=== PATIENT | female | born 1940 | race Caucasian/White ===

== ENCOUNTER → 2016-09-10 | Outpatient (CLI) | payer MEDICARE, BC ==
--- NOTE | 2016-09-16 08:32 | MM ---
Reason for exam: screening (asymptomatic). Last mammogram was performed 1 year ago. History: Patient is postmenopausal, history of other cancer, and is nulliparous. Family history of premenopausal breast cancer in maternal aunt. Benign MG stereo VAD BX LT of the left breast, September 17, 2014. Benign US right guided VAD of the right breast, February 25, 2010. Benign cyst aspiration of the left breast. Benign cyst aspiration of the right breast. Benign excisional biopsy of the left breast. Took estrogen beginning at age 47. Took progesterone for 17 years beginning at age 47. Physical Findings: A clinical breast exam by your physician is recommended on an annual basis and results should be correlated with mammographic findings. MG 3D Screening Mammo W/Cad Bilateral CC and MLO view(s) were taken. Prior study comparison: September 10, 2015, bilateral MG 3d screening mammo w/cad. The breast tissue is heterogeneously dense. This may lower the sensitivity of mammography. Previous mammotome biopsy in the right breast with adjacent round density and in the left breast. There is chronic nodularity bilaterally. No significant changes when compared with prior studies. ASSESSMENT: Benign, BI-RAD 2 RECOMMENDATION: Routine screening mammogram of both breasts in 1 year.
== END | disposition home or self-care (01) ==
LOC: RADMAMWWP 08:45
PROVIDERS: ATTEND Family Medicine
DX: Z12.31 Encounter for screening mammogram for malignant neoplasm of breast (principal)
CPT/HCPCS: 77063; G0202

== ENCOUNTER → 2017-10-05 | Outpatient (CLI) | payer MEDICARE, BC ==
--- NOTE | 2017-10-07 10:42 | MM ---
Reason for exam: screening (asymptomatic). Last mammogram was performed 1 year and 1 month ago. History: Patient is postmenopausal, history of other cancer, and is nulliparous. Family history of premenopausal breast cancer in maternal aunt. Benign MG stereo VAD BX LT of the left breast, September 17, 2014. Benign US right guided VAD of the right breast, February 25, 2010. Benign cyst aspiration of the left breast. Benign cyst aspiration of the right breast. Benign excisional biopsy of the left breast. Took estrogen beginning at age 47. Took progesterone for 17 years beginning at age 47. Physical Findings: A clinical breast exam by your physician is recommended on an annual basis and results should be correlated with mammographic findings. MG 3D Screening Mammo W/Cad Bilateral CC and MLO view(s) were taken. Prior study comparison: September 10, 2016, bilateral MG 3d screening mammo w/cad. September 10, 2015, bilateral MG 3d screening mammo w/cad. The breast tissue is heterogeneously dense. This may lower the sensitivity of mammography. Previous mammotome biopsy in the right breast x 2. No significant changes when compared with prior studies. ASSESSMENT: Benign, BI-RAD 2 RECOMMENDATION: Routine screening mammogram of both breasts in 1 year.
== END | disposition home or self-care (01) ==
LOC: RADMAMWWP 09:04
PROVIDERS: ATTEND Family Medicine
DX: Z12.31 Encounter for screening mammogram for malignant neoplasm of breast (principal)
CPT/HCPCS: 77063; 77067

== ENCOUNTER → 2018-10-12 | Outpatient (CLI) | payer MEDICARE, BC ==
--- NOTE | 2018-10-13 13:52 | MM ---
Reason for exam: screening (asymptomatic). Last mammogram was performed 1 year ago. History: Patient is postmenopausal, history of other cancer, and is nulliparous. Family history of premenopausal breast cancer in maternal aunt. Benign MG stereo VAD BX LT of the left breast, September 17, 2014. Benign US right guided VAD of the right breast, February 25, 2010. Benign cyst aspiration of the left breast. Benign cyst aspiration of the right breast. Benign excisional biopsy of the left breast. Took estrogen beginning at age 47. Took progesterone for 17 years beginning at age 47. Physical Findings: A clinical breast exam by your physician is recommended on an annual basis and results should be correlated with mammographic findings. MG 3D Screening Mammo W/Cad Bilateral CC and MLO view(s) were taken. Prior study comparison: October 05, 2017, bilateral MG 3d screening mammo w/cad. September 10, 2016, bilateral MG 3d screening mammo w/cad. The breast tissue is heterogeneously dense. This may lower the sensitivity of mammography. Post surgical change on the left. No suspicious abnormality. Bilateral biopsy markers. No significant changes when compared with prior studies. ASSESSMENT: Benign, BI-RAD 2 RECOMMENDATION: Routine screening mammogram of both breasts in 1 year.
== END | disposition home or self-care (01) ==
LOC: RADMAMWWP 09:05
PROVIDERS: ATTEND Family Medicine
DX: Z12.31 Encounter for screening mammogram for malignant neoplasm of breast (principal)
CPT/HCPCS: 77063; 77067

== ENCOUNTER 2019-01-26 18:28 | Emergency (ER) | payer MEDICARE, BC ==
[2019-01-26 18:46] VITALS: TEMP 97.8
[2019-01-26] MEDS ORDERED: ONDANSETRON 4 MG/2 ML VIAL IVP STA (19:05)
[2019-01-26] MEDS ORDERED: SODIUM CHLORIDE 0.9% 1,000 ML IV STA (19:05)
[2019-01-26] MEDS ORDERED: PANTOPRAZOLE 40 MG/10 ML VIAL IVP STA (19:05)
--- NOTE | 2019-01-26 19:12 | ED ---
Abdominal Pain HPI - General Chief Complaint: Abdominal Pain Stated Complaint: Back/Abd Pain Time Seen by Provider: 01/26/19 18:50 Source: patient Mode of arrival: ambulatory Limitations: no limitations - History of Present Illness Initial Comments: Patient is 78-year-old female presenting to emergency Department with a chief complaint of abdominal pain. Patient reports the symptoms began about 4 hours ago with sudden onset of left flank pain that radiates to the back. Patient reports the pain is alleviated when walking exacerbated when sitting down. Patient reports nausea but no vomiting or diarrhea. Patient reports pain is throbbing in nature. Patient reports the pain is not related to oral intake. Patient denies increased urgency, frequency or dysuria. Patient does report a blood tinged urine but denies hematochezia or melena. Patient denies any night sweats fevers or chills. Patient denies any chest pain, shortness of breath, he adache. - Related Data Home Medications Medication Instructions Recorded Confirmed Levothyroxine Sodium [Synthroid] 100 mcg PO DAILY 09/04/14 09/18/14 Multivitamins, Thera [Multivitamin 1 each PO DAILY 09/04/14 09/18/14 (formulary)] Previous Rx's Medication Instructions Recorded Rivaroxaban [Xarelto] 10 mg PO DAILY #12 tab 09/18/14 Hydrocodone/Acetaminophen [Linwood 1 - 2 each PO Q6HR PRN #60 tab 09/21/14 5-325] Levofloxacin [Levaquin] 500 mg PO DAILY #3 tab 09/21/14 Sennosides-Docusate Sodium 2 each PO ONCE #30 tablet 09/21/14 [Senokot-S] hydrOXYzine PAMOATE [Vistaril] 25 mg PO Q6HR #40 capsule 09/21/14 Ondansetron Odt [Zofran Odt] 4 mg PO Q8HR PRN #20 tab 01/26/19 Allergies Allergy/AdvReac Type Severity Reaction Status Date / Time codeine Allergy Unknown Abdominal Verified 01/26/19 18:46 Pain sulfamethoxazole Allergy Unknown Unknown Verified 01/26/19 18:46 [From Bactrim] trimethoprim [From Bactrim] Allergy Unknown Unknown Verified 01/26/19 18:46 hydrocodone bitartrate AdvReac Severe Severe Verified 01/26/19 18:46 [From Linwood] Constipation Review of Systems ROS Statement: Those systems with pertinent positive or pertinent negative responses have been documented in the HPI. ROS Other: All systems not noted in ROS Statement are negative. Past Medical History Past Medical History: Osteoarthritis (OA), Thyroid Disorder History of Any Multi-Drug Resistant Organisms: None Reported Past Surgical History: Joint Replacement Additional Past Surgical History / Comment(s): LEFT KNEE REPLACEMENT (DEC 2012), THYROIDECTOMY. Past Anesthesia/Blood Transfusion Reactions: No Reported Reaction, Family History of Problems w/ Anesthesia Additional Past Anesthesia/Blood Transfusion Reaction / Comment(s): SISTER PONV Past Psychological History: No Psychological Hx Reported Smoking Status: Never smoker Past Alcohol Use History: Rare Past Drug Use History: None Reported - Past Family History Sister(s) Family Medical History: Cancer Additional Family Medical History / Comment(s): UTERINE CA AND LYMPHOMA General Exam Limitations: no limitations General appearance: alert, in no apparent distress, obese Head exam: Present: atraumatic, normocephalic, normal inspection Eye exam: Present: normal appearance, PERRL, EOMI Pupils: Present: normal accommodation ENT exam: Present: normal exam, normal oropharynx, mucous membranes moist Neck exam: Present: normal inspection, full ROM Respiratory exam: Present: normal lung sounds bilaterally Cardiovascular Exam: Present: regular rate, normal rhythm, normal heart sounds GI/Abdominal exam: Present: soft, tenderness (Left flank pain), normal bowel sounds. Absent: distended, guarding, rebound, rigid, diminished bowel sounds, hyperactive bowel sounds, organomegaly, mass, pulsatile mass, hernia Extremities exam: Present: normal inspection, full ROM, normal capillary refill Back exam: Present: normal inspection, full ROM, CVA tenderness (L). Absent: tenderness, CVA tenderness (R), paraspinal tenderness, vertebral tenderness Neurological exam: Present: alert, oriented X3 Psychiatric exam: Present: normal affect, normal mood Skin exam: Present: warm, intact, normal color Course Vital Signs 01/26/19 18:43 Temperature 97.8 F Pulse Rate 71 Respiratory 20 Rate Blood Pressure 195/90 O2 Sat by Pulse 98 Oximetry Medical Decision Making - Medical Decision Making Patient is 78-year-old female presenting to emergency Department with a chief complaint of abdominal pain. Physical examination is negative of left CVA tenderness with left flank tenderness. No palpable abdominal pulsating masses. Rest of physical examination is unremarkable. CBC is unremarkable. CMP showing changes in renal function. UA is indicative of hematuria which is suspected a more of a kidney stone. Patient was given fluids, antiemetics, Protonix and Bentyl. On reevaluation patient reports her symptoms have completely resolved and her pain is about a 1. I offered the patient a patient anti-emetic medication but she declined. CT was obtained and is showing multiple renal parapelvic cyst with left renal cortical cyst but no obstruction. Hiatal hernias also noted. There is very small amounts of mesenteric edema of unknown significance. There are also a few enlarged small bowel mesenteric lymph nodes and also a 2 cm para-aortic lymph node. I suspect the cortical renal cyst to be causing her symptoms. I advised the patient to follow-up with urology. Strict return parameters were thoroughly discussed with patient and her standing agreeable. Case discussed physician. - Lab Data Result diagrams: 01/26/19 19:00 01/26/19 19:00 Lab Results 01/26/19 01/26/19 01/26/19 Range/Units 19:00 19:00 19:24 WBC 9.6 (3.8-10.6) k/uL RBC 4.68 (3.80-5.40) m/uL Hgb 14.7 (11.4-16.0) gm/dL Hct 44.3 (34.0-46.0) % MCV 94.6 (80.0-100.0) fL MCH 31.3 (25.0-35.0) pg MCHC 33.1 (31.0-37.0) g/dL RDW 13.6 (11.5-15.5) % Plt Count 255 (150-450) k/uL Neutrophils % 79 % Lymphocytes % 14 % Monocytes % 3 % Eosinophils % 3 % Basophils % 1 % Neutrophils # 7.5 (1.3-7.7) k/uL Lymphocytes # 1.3 (1.0-4.8) k/uL Monocytes # 0.3 (0-1.0) k/uL Eosinophils # 0.3 (0-0.7) k/uL Basophils # 0.1 (0-0.2) k/uL Sodium 142 (137-145) mmol/L Potassium 4.5 (3.5-5.1) mmol/L Chloride 110 H (98-107) mmol/L Carbon Dioxide 24 (22-30) mmol/L Anion Gap 8 mmol/L BUN 18 H (7-17) mg/dL Creatinine 0.88 (0.52-1.04) mg/dL Est GFR (CKD-EPI)AfAm 74 (>60 ml/min/1.73 sqM) Est GFR (CKD-EPI)NonAf 64 (>60 ml/min/1.73 sqM) Glucose 88 (74-99) mg/dL Calcium 9.8 (8.4-10.2) mg/dL Total Bilirubin 0.3 (0.2-1.3) mg/dL AST 27 (14-36) U/L ALT 24 (9-52) U/L Alkaline Phosphatase 118 (38-126) U/L Total Protein 7.0 (6.3-8.2) g/dL Albumin 4.3 (3.5-5.0) g/dL Amylase 54 (30-110) U/L Lipase 97 (23-300) U/L Urine Color Yellow Urine Appearance Clear (Clear) Urine pH 7.0 (5.0-8.0) Ur Specific [place]idan 1.018 (1.001-1.035) Urine Protein Trace H (Negative) Urine Glucose (UA) Negative (Negative) Urine Ketones Negative (Negative) Urine Blood Moderate H (Negative) Urine Nitrite Negative (Negative) Urine Bilirubin Negative (Negative) Urine Urobilinogen <2.0 (<2.0) mg/dL Ur Leukocyte Esterase Small H (Negative) Urine RBC >182 H (0-5) /hpf Urine WBC 2 (0-5) /hpf Ur Squamous Epith Cells <1 (0-4) /hpf Urine Mucus Occasional H (None) /hpf Disposition Clinical Impression: Renal cyst, Acute left flank pain Disposition: HOME SELF-CARE Condition: Stable Instructions (If sedation given, give patient instructions): Abdominal Pain (ED) Additional Instructions: Please follow up with a urologist. Please return to emergency department if symptoms worsen. Prescriptions: Ondansetron Odt [Zofran Odt] 4 mg PO Q8HR PRN #20 tab PRN Reason: Nausea Is patient prescribed a controlled substance at d/c from ED?: No Referrals: Frankie Diallo III, MD [Primary Care Provider] - 1-2 days Rajat Araujo MD [STAFF PHYSICIAN] - 1-2 days Time of Disposition: 21:06
[2019-01-26] MEDS: DICYCLOMINE 10 MG/ML 2 ML AMP IM STA ×2 (19:15→19:20)
[2019-01-26 19:28] LABS: Basophils # (A) 0.1 k/uL (0-0.2); Basophils % (A) 1 %; Eosinophils # (A) 0.3 k/uL (0-0.7); Eosinophils % (A) 3 %; HCT 44.3 % (34.0-46.0); HGB 14.7 gm/dL (11.4-16.0); Lymphocytes # (A) 1.3 k/uL (1.0-4.8); Lymphocytes % (A) 14 %; MCH 31.3 pg (25.0-35.0); MCHC 33.1 g/dL (31.0-37.0); MCV 94.6 fL (80.0-100.0); Mean Platelet Volume 6.7; Monocytes # (A) 0.3 k/uL (0-1.0); Monocytes % (A) 3 %; Neutrophils # (A) 7.5 k/uL (1.3-7.7); Neutrophils % (A) 79 %; Platelet Count 255 k/uL (150-450); RBC 4.68 m/uL (3.80-5.40); RDW 13.6 % (11.5-15.5); WBC 9.6 k/uL (3.8-10.6)
[2019-01-26 19:30] LABS: Albumin 4.3 g/dL (3.5-5.0); Calcium 9.8 mg/dL (8.4-10.2); Potassium 4.5 mmol/L (3.5-5.1); Total Bilirubin 0.3 mg/dL (0.2-1.3)
[2019-01-26 19:31] LABS: Appearance,Urine Clear (Clear); Bilirubin,Urine Negative (Negative); Blood,Urine Moderate (Negative); Color,Urine Yellow; Glucose,Urine (UA) Negative (Negative); Ketones,Urine Negative (Negative); Leukocyte Esterase,Urine Small (Negative); Mucus,Urine Occasional /hpf; Nitrite,Urine Negative (Negative); Protein,Urine Trace (Negative); RBC,Urine >182 /hpf (0-5); Specific Gravity,Urine 1.018 (1.001-1.035); Squamous Epithelial Cell,Urine <1 /hpf (0-4); Urobilinogen,Urine <2.0 mg/dL (<2.0)
[2019-01-26] MEDS ORDERED: ONDANSETRON ODT 4 MG TAB PO STA (19:42)
--- NOTE | 2019-01-26 20:45 | CT ---
EXAMINATION TYPE: CT abdomen pelvis w con DATE OF EXAM: 01/26/2019 COMPARISON: None HISTORY: Abdominal/back pain. CT DLP: 1780.4 mGycm Automated exposure control for dose reduction was used. TECHNIQUE: Helical acquisition of images was performed from the lung bases through the pelvis. CONTRAST: Performed without Oral Contrast and with IV Contrast, patient injected with 100 mL of Isovue 300. FINDINGS: Lung bases are clear of consolidation. There is no pleural effusion. There is moderate hiatal hernia. Heart size is normal. There is no pericardial effusion. Stomach has normal size. There are clips from cholecystectomy. Liver appears normal. Spleen is intact . There is no pancreatic mass. There is no adrenal mass. There are numerous bilateral renal parapelvic cysts. Ureters are not dilated. There is no hydronephro sis. There is 4.5 cm cortical cyst lateral left kidney. There is a 2 cm right side enlarged para-aort ic lymph node. Bladder distends smoothly. There is no inguinal hernia. Uterus is anteverted. There is no free fluid in the pelvis. There is no evidence of a bowel obstruction. There is very minimal small bowel mesenteric edema. Ther e are multiple variable-sized enlarged small bowel mesenteric lymph nodes. Small bowel is not dilated . There is no evidence of free air. There is no ascites. There are some spondylotic changes in the lisy mbar spine. No pelvic lymphadenopathy seen. IMPRESSION: MULTIPLE RENAL PARAPELVIC CYSTS. LEFT RENAL CORTICAL CYSTS. NO RENAL OBSTRUCTION. HIATAL HERNIA. THERE IS MINIMAL SMALL BOWEL MESENTERIC EDEMA OF UNCERTAIN SIGNIFICANCE. THERE ARE A FEW ENLARGED SMA LL BOWEL MESENTERIC LYMPH NODES. THERE IS A SINGLE ENLARGED 2 CENTIMETER PERIAORTIC LYMPH NODE. No in testinal wall thickening. Inflammatory or neoplastic etiology is possible.
[2019-01-26 21:13] VITALS: BP 142/92; PULSE 88; RESP 16
== END 2019-01-26 21:13 | disposition home or self-care (01) ==
LOC: EC 18:28
DX: N28.1 Cyst of kidney, acquired (principal); R59.0 Localized enlarged lymph nodes; R11.0 Nausea; E07.9 Disorder of thyroid, unspecified; M19.90 Unspecified osteoarthritis, unspecified site; Z96.652 Presence of left artificial knee joint; Z79.890 Hormone replacement therapy; Z88.5 Allergy status to narcotic agent; Z88.2 Allergy status to sulfonamides; Z53.29 Procedure and treatment not carried out because of patient's decision for other reasons
CPT/HCPCS: 36415; 80053; 82150; 83690; 85025; 81001; 74177; 99284; 96374; 96375; 96361; J2405; C9113; Q9967

== ENCOUNTER → 2019-03-14 | Outpatient (CLI) | payer MEDICARE, BC ==
--- NOTE | 2019-03-14 08:47 | XR ---
EXAMINATION TYPE: XR KUB DATE OF EXAM: 03/14/2019 8:41 AM CLINICAL HISTORY: Left ureteral calculus TECHNIQUE: Two Upright KUB images of the abdomen are obtained. COMPARISON: CT January 26, 2019. FINDINGS: The 3 mm proximal left ureteral calculus on CT is not as well-seen on plain films likely du e to small size of stone and patient's body habitus. Cholecystectomy clips are redemonstrated. Overall nonobstructive bowel gas pattern. Right-sided pelvi c phleboliths noted. Multilevel spurring in the spine. Lung bases remain clear. IMPRESSION: As above. Consider repeat CT.
--- NOTE | 2019-03-14 09:09 | US ---
EXAMINATION TYPE: US kidneys/renal and bladder DATE OF EXAM: 03/14/2019 COMPARISON: CT CLINICAL HISTORY: N20.1 CALCULUS OF URETER. Flank pain EXAM MEASUREMENTS: Right Kidney: 10.2 x 5.1 x 5.6 cm Left Kidney: 11.0 x 5.2 x 5.6 cm Right Kidney: Multicystic, probable parapelvic cysts, largest= 2.0 x 1.3 x 2.0 Left Kidney: Cyst lateral= 5.3 x 3.0 x 5.2 cm/ Mild dilated renal pelvis Bladder: Not fully distended Bilateral Jets seen: No There are central parapelvic cysts bilaterally redemonstrated seen better on CT versus ultrasound. Ex am slightly suboptimal due to body habitus. Poor distention of bladder. Suggestion of mild to moderat e pyelocaliectasis on the left side on background parapelvic cysts. IMPRESSION: Suspect new mild to moderate left-sided hydronephrosis versus prior CT. This raises tiana rn for persistent obstructing small left ureter calculus. Background prominent parapelvic cysts bilat erally noted.
== END | disposition home or self-care (01) ==
LOC: RADUSWWP 08:22
PROVIDERS: ATTEND Urology
DX: N94.89 Other specified conditions associated with female genital organs and menstrual cycle (principal); N20.1 Calculus of ureter; I87.8 Other specified disorders of veins; Z90.49 Acquired absence of other specified parts of digestive tract
CPT/HCPCS: 74018; 76770

== ENCOUNTER → 2019-10-27 | Outpatient (CLI) | payer MEDICARE, BC ==
--- NOTE | 2019-10-30 09:55 | MM ---
Reason for exam: screening (asymptomatic). Last mammogram was performed 1 year ago. History: Patient is postmenopausal, history of other cancer, and is nulliparous. Family history of premenopausal breast cancer in maternal aunt. Benign MG stereo VAD BX LT of the left breast, September 17, 2014. Benign US right guided VAD of the right breast, February 25, 2010. Benign cyst aspiration of the left breast. Benign cyst aspiration of the right breast. Benign excisional biopsy of the left breast. Took estrogen beginning at age 47. Took progesterone for 17 years beginning at age 47. Physical Findings: A clinical breast exam by your physician is recommended on an annual basis and results should be correlated with mammographic findings. MG 3D Screening Mammo W/Cad Bilateral CC and MLO view(s) were taken. Prior study comparison: October 12, 2018, bilateral MG 3d screening mammo w/cad. October 05, 2017, bilateral MG 3d screening mammo w/cad. The breast tissue is heterogeneously dense. This may lower the sensitivity of mammography. Previous mammotome biopsy in the left breast. There is chronic nodularity bilaterally. There is no dominant lesion. No significant changes when compared with prior studies. ASSESSMENT: Benign, BI-RAD 2 RECOMMENDATION: Routine screening mammogram of both breasts in 1 year.
== END | disposition home or self-care (01) ==
LOC: RADMAMWWP 08:04
PROVIDERS: ATTEND Family Medicine
DX: Z12.31 Encounter for screening mammogram for malignant neoplasm of breast (principal)
CPT/HCPCS: 77063; 77067

== ENCOUNTER → 2020-12-03 | Outpatient (CLI) | payer MEDICARE ==
--- NOTE | 2020-12-04 21:06 | BD ---
EXAMINATION TYPE: Axial Bone Density DATE OF EXAM: 12/03/2020 COMPARISON: 2008 CLINICAL HISTORY: Postmenopausal screening Height: 5 FT 5 1/2 IN Weight: 228 FRAX RISK QUESTIONS: Alcohol (3 or more units per day): NO Family History (Parent hip fracture): NO Glucocorticoids (More than 3mos): NO (Ex: prednisone, prednisolone, methylprednisolone, dexamethasone, and hydrocortisone). History of Fracture in Adulthood: NO Secondary Osteoporosis: 1. Type 1 Diabetes: NO 2. Hyperthyroidism: NO 3. Menopause before 45: NO 4. Malnutrition: NO 5. Chronic liver disease: NO Rheumatoid Arthritis: NO Current Tobacco Use: NO RISK FACTORS HISTORY OF: Surgery to Spine/Hip(right/left)/Wrist (right/left): NO Family History of Osteoporosis: NO Active: YES Diet low in dairy products/other sources of calcium: NO Postmenopausal woman: MID 40'S Take estrogen and/or progesterone medications: NO Lost more than 2 inches in height since high school: NO MEDICATIONS: Thyroid Medications: YES Which medication: LEVOTHYROXINE How Long: SINCE AGE 28 Additional Medications: LEVOTHYROXINE, Additional History: EXAM MEASUREMENTS: Bone mineral densitometry was performed using the [employer] System. Bone mineral density as measured about the Lumbar spine is: ----- L1-L4(G/cm2): 1.470 T Score Values are as follows: ----- L2: 2.3 ----- L3: 3.6 ----- L4: 2.0 ----- L1-L4: 2.4 Bone mineral density has: INCREASED 7.3 % since study of: 2008 Bone mineral density about the R hip (g/cm2): 0.857 Bone mineral density about the L hip (g/cm2): 0.862 T Score values are as follows: -----R Neck: -1.3 -----L Neck: -1.3 -----R Total: -0.8 -----L Total: -0.9 Bone mineral density has: DECREASED -7.3 % since study of: 2008 IMPRESSION: Osteopenia (T Score between -2.5 and -1). There is slightly increased risk of fracture and the patient may be considered for treatment. Re-Screen 2-5 years. NOTE: T-SCORE=SD OF THE YOUNG ADULT MEAN.
== END | disposition home or self-care (01) ==
LOC: RADMAMWWP 14:39
PROVIDERS: ATTEND Family Medicine
DX: M85.80 Other specified disorders of bone density and structure, unspecified site (principal); Z78.0 Asymptomatic menopausal state
CPT/HCPCS: 77080

== ENCOUNTER → 2020-12-06 | Outpatient (CLI) | payer MEDICARE ==
--- NOTE | 2020-12-09 09:43 | MM ---
Reason for exam: screening (asymptomatic). Last mammogram was performed 1 year and 1 month ago. History: Patient is postmenopausal, history of other cancer, and is nulliparous. Family history of premenopausal breast cancer in maternal aunt. Benign MG stereo VAD BX LT of the left breast, September 17, 2014. Benign US right guided VAD of the right breast, February 25, 2010. Benign cyst aspiration of the left breast. Benign cyst aspiration of the right breast. Benign excisional biopsy of the left breast. Took estrogen beginning at age 47. Took progesterone for 17 years beginning at age 47. Physical Findings: A clinical breast exam by your physician is recommended on an annual basis and results should be correlated with mammographic findings. MG 3D Screening Mammo W/Cad Bilateral CC and MLO view(s) were taken. Prior study comparison: October 27, 2019, bilateral MG 3d screening mammo w/cad. October 12, 2018, bilateral MG 3d screening mammo w/cad. October 05, 2017, bilateral MG 3d screening mammo w/cad. The breast tissue is heterogeneously dense. This may lower the sensitivity of mammography. Previous mammotome biopsy in the right breast x 2 and in the left breast x 1. There is chronic nodularity bilaterally. There is no discrete abnormality. ASSESSMENT: Benign, BI-RAD 2 RECOMMENDATION: Routine screening mammogram of both breasts in 1 year.
== END | disposition home or self-care (01) ==
LOC: RADMAMWWP 07:07
PROVIDERS: ATTEND Family Medicine
DX: Z12.31 Encounter for screening mammogram for malignant neoplasm of breast (principal); Z13.820 Encounter for screening for osteoporosis
CPT/HCPCS: 77063; 77067

== ENCOUNTER → 2021-12-08 | Outpatient (CLI) | payer MEDICARE ==
--- NOTE | 2021-12-09 12:39 | MM ---
Reason for Exam: Screening (asymptomatic). Last screening mammogram was performed 12 month(s) ago. Patient History: Menarche at age 13. Patient has no children. Postmenopausal. Other cancer. Estrogen, from age 47 until age 64. Progesterone for 17 years from age 47 until age 64. Benign Cyst Aspiration on the right side. Benign Cyst Aspiration on the left side. Benign Excisional Biopsy on the left side. 09/17/2014, Benign Core Biopsy on the left side. 02/25/2010, Benign Core Biopsy on the right side. Maternal aunt had breast cancer, age 40. Risk Values: Kimberly 5 year model risk: 3.1%. NCI Lifetime model risk: 5.1%. Prior Study Comparison: 10/12/2018 Bilateral Screening Mammogram, [facility]. 10/27/2019 Bilateral Screening Mammogram, [facility]. 12/06/2020 Bilateral Screening Mammogram, [facility]. Tissue Density: The breast tissue is heterogeneously dense. This may lower the sensitivity of mammography. Findings: Analyzed By CAD. Unchanged bilateral areas of asymmetric density. Chronic intramammary lymph node upper outer quadrant right breast. 2 microclips in the right breast from prior biopsies with associated nodularity and focal asymmetries. Single microclip left breast with associated chronic nodularity. The focal asymmetry upper left MLO view at a middle depth remains unchanged back to at least 2018. No significant change from prior exams. Overall Assessment: Benign, BI-RAD 2 Management: Screening Mammogram of both breasts in 1 year. 1. Note the patient's high Kimberly score. Patient should continue monthly self breast exams. 2. A clinical breast exam by your physician is recommended on an annual basis. 3. This exam should not preclude additional follow-up of suspicious palpable abnormalities. Electronically signed and approved by: Maria Antonia Vasquez M.D. Radiologist
== END | disposition home or self-care (01) ==
LOC: RADMAMWWP 13:01
PROVIDERS: ATTEND Family Medicine
DX: Z12.31 Encounter for screening mammogram for malignant neoplasm of breast (principal)
CPT/HCPCS: 77063; 77067

== ENCOUNTER 2022-11-02 07:47 | Inpatient (IN) | payer MEDICARE ==
--- NOTE | 2022-11-02 08:39 | ED ---
General Adult HPI - General Chief complaint: Shortness of Breath Stated complaint: SOB Time Seen by Provider: 11/02/22 07:56 Source: patient Mode of arrival: ambulatory Limitations: no limitations - History of Present Illness Initial comments: Patient is an 82-year-old female who presents emergency department over concern for 3 months worsening dyspnea and chest discomfort. Patient states her rug setter [place] Dr. Jackson instructed her to come to the emergency department for admission.Patient instructed to come to the emergency department on Wednesday by Dr. Jackson. Is currently Wednesday morning. States symptoms have been ongoing for 3 months. His no history of CAD or stents as far she knows. Describes her chest discomfort is a intermittent pressure sensation located over the left side of her chest which she currently does not have. She also has exertional dyspnea but she currently does not have. Has no complaints or symptoms at this time. Has somewhat worsening lower extremity edema. Denies PND. Denies orthopnea. Denies any abdominal pain, nausea, vomiting, diaphoresis. Has no other acute complaints at this time. Has a history of hypertension, thyroid disease. Presents for further evaluation at this time. - Related Data Home Medications Medication Instructions Recorded Confirmed Levothyroxine Sodium [Synthroid] 100 mcg PO DAILY 09/04/14 11/02/22 Multivitamins, Thera [Multivitamin 1 tab PO DAILY 09/04/14 11/02/22 (formulary)] Aspirin [Adult Low Dose Aspirin EC] 81 mg PO DAILY 10/27/22 11/02/22 Metoprolol Succinate (ER) [Toprol 12.5 mg PO DAILY 10/27/22 11/02/22 Xl] Ibuprofen [Motrin Ib] 200 mg PO Q8H PRN 11/02/22 11/02/22 Annie Nail Gel 1 applic TOPICAL DAILY 11/02/22 11/02/22 Nitroglycerin Sl Tabs [Nitrostat] 0.4 mg SUBLINGUAL Q5M PRN 11/02/22 11/02/22 diphenhydrAMINE HCL [Benadryl] 25 mg PO DAILY PRN 11/02/22 11/02/22 Allergies Allergy/AdvReac Type Severity Reaction Status Date / Time codeine Allergy Unknown Abdominal Verified 11/02/22 10:44 Pain sulfamethoxazole Allergy Unknown Unknown Verified 11/02/22 10:44 [From Bactrim] trimethoprim [From Bactrim] Allergy Unknown Unknown Verified 11/02/22 10:44 adhesive tape Allergy Rash/Hives Verified 11/02/22 10:44 hydrocodone bitartrate AdvReac Severe Severe Verified 11/02/22 10:44 [From [place]] Constipation Review of Systems ROS Statement: Those systems with pertinent positive or pertinent negative responses have been documented in the HPI. Review of Systems: CONST: Denies fever EYES: Denies blurry vision ENT: Denies nasal congestion C/V: Denies current Chest pain RESP: Denies current shortness of breath GI: Denies abdominal pain : Denies dysuria SKIN: Denies rash. MSK: Denies joint pain. NEURO: Denies headache ROS Other: All systems not noted in ROS Statement are negative. Past Medical History Past Medical History: Osteoarthritis (OA), Thyroid Disorder History of Any Multi-Drug Resistant Organisms: None Reported Past Surgical History: Cholecystectomy, Joint Replacement, Tonsillectomy Additional Past Surgical History / Comment(s): STACEY. KNEE REPL., THYROIDECTOMY, STACEY FOOT BUNION SURGERY Past Anesthesia/Blood Transfusion Reactions: Postoperative Nausea & Vomiting (PONV) Additional Past Anesthesia/Blood Transfusion Reaction / Comment(s): SISTER PONV Past Psychological History: No Psychological Hx Reported Smoking Status: Never smoker Past Alcohol Use History: Rare Past Drug Use History: None Reported - Past Family History Sister(s) Family Medical History: Cancer Additional Family Medical History / Comment(s): UTERINE CA AND LYMPHOMA General Exam - General Exam Comments Initial Comments: General: Appears in no acute distress. HEAD: Normal with no signs of head trauma. EYES: PERRLA, EOMI, conjunctiva normal, no discharge. ENT: Hearing grossly intact, normal oropharynx. RESPIRATORY: Clear breath sounds bilaterally. No wheezes, rales, or rhonchi. C/V: Regular rate and rhythm. S1 and S2 auscultated, mild bilateral lower extremity pitting edema, peripheral pulses 2+ and intact throughout ABD: Abd is soft, nontender, nondistended EXT: Normal range of motion, no obvious deformity SKIN: No rashes or lesions observed on exposed skin. NEURO: Alert and oriented 4. No focal deficits. Limitations: no limitations Course Vital Signs 11/02/22 11/02/22 11/02/22 07:51 08:32 10:11 Temperature 98.1 F Pulse Rate 69 61 60 Respiratory 18 18 20 Rate Blood Pressure 167/83 149/86 146/71 O2 Sat by Pulse 91 L 95 97 Oximetry 11/02/22 11:04 Temperature Pulse Rate 66 Respiratory 20 Rate Blood Pressure 162/92 O2 Sat by Pulse 94 L Oximetry Medical Decision Making - Medical Decision Making Was pt. sent in by a medical professional or institution (, [facility], [employer], urgent care, hospital, or fpc...) When possible be specific @ -Patient states she was sent in by her rug setter [place], Dr. Jackson for evaluation. Did you speak to anyone other than the patient for history (EMS, parent, family, police, friend...)? What history was obtained from this source @ -No Did you review nursing and triage notes (agree or disagree)? Why? @ -I reviewed and agree with nursing and triage notes Were old charts reviewed (outside hosp., previous admission, EMS record, old EKG, old radiological studies, urgent care reports/EKG's, fpc records)? Report findings @ -No old charts were reviewed Differential Diagnosis (chest pain, altered mental status, abdominal pain women, abdominal pain men, vaginal bleeding, weakness, fever, dyspnea, syncope, headache, dizziness, GI bleed, back pain, seizure, CVA, palpatations, mental health, musculoskeletal)? @ -Differential Chest Pain: Stable Angina, Unstable Angina, STEMI, NSTEMI Aortic Dissection, Pneumothorax, Musculoskeletal, Esophageal Spasm GERD, Cholecystitis, Pancreatitis, Zoster, this is not meant to be an all-inclusive list. EKG interpreted by me (3pts min.). @ -As above X-rays interpreted by me (1pt min.). @ -Chest x-ray reveals no obvious acute cardiopulmonary process or infiltrate. No evidence of pulmonary vascular congestion. CT interpreted by me (1pt min.). @ -None done U/S interpreted by me (1pt. min.). @ -None done What testing was considered but not performed or refused? (CT, X-rays, U/S, labs)? Why? @ -None What meds were considered but not given or refused? Why? @ -None Did you discuss the management of the patient with other professionals (professionals i.e. , [employer], [employer], lab, RT, psych nurse, healthcare social worker, production foreman, teacher, activities officer, shelter case manager)? Give summary @ -I discussed with Dr. Jackson, patient's rug setter [place] after workup was completed and he requested that we hold computed tomography scan for PE as he believes patient's symptoms are likely cardiac in nature, and I think this is reasonable as she is hemodynamically stable at this time with [address] weeks of sympt oms. CT was canceled at his request. Echo was ordered. Patient made NPO at his request. Patient already received aspirin. Plan is for cardiac cath later today, CT if cath unremarkable per Dr. Jackson. I spoke with the admitting physician Dr. Lynn who accepted the admission. Was smoking cessation discussed for >3mins.? @ -No Was critical care preformed (if so, how long)? @ -No Were there social determinants of health that impacted care today? How? (Homelessness, low income, unemployed, alcoholism, drug addiction, transportation, low edu. Level, literacy, decrease access to med. care, half-way, rehab)? @ -No Was there de-escalation of care discussed even if they declined (Discuss DNR or withdrawal of care, Hospice)? DNR status @ -No What co-morbidities impacted this encounter? (DM, HTN, Smoking, COPD, CAD, Cancer, CVA, ARF, Chemo, Hep., AIDS, mental health diagnosis, sleep apnea, morbid obesity)? @ -None Was patient admitted / discharged? Hospital course, mention meds given and route, prescriptions, significant lab abnormalities, going to OR and other pertinent info. @ -Based on the patient's presentation and physical exam, concern for possible acute cardiopulmonary etiology for her current symptoms. We will obtain cardiopulmonary labs as well as EKG and chest x-ray. Patient was in agreement with this plan. Patient has 324 mg of aspirin administered. Attempts will be made to reach out to Dr. Jackson for any specific workup.. EKG showed very minimal ST segment depression in V6 and possibly V5 with reciprocal changes. No prior EKG for comparison. Patient's labs remarkable for a troponin that is undetectable, BMP is within normal limits. Chest x-ray shows no evidence of acute cardio pulmonary process or pulmonary vascular congestion. At this time as I do not have a clear etiology for her current symptoms I did add on a d-dimer to her initial workup. We were able to obtain recent lab results from the cardiology office which revealed no obvious findings.Patient's d-dimer was elevated and CT chest was initially ordered to evaluate for PE. Patient's rug setter [place] Dr. Jackson called back. He asked that I hold the CT chest which I believe is reasonable as she is hemodynamically stable with [address] was canceled at his request and will be performed based on results of cardiac cath later today. He was otherwise in agreement with the aspirin. Requested that patient be made nothing by mouth. Patient will be admitted to [facility] Dr. Lynn who accepted the admission. I spoke with the patient regarding this and she was in agreement with the plan. She last had water this morning but has not eaten anything today. She will be started on maintenance fluids as she is nothing by mouth. Echo was also ordered. Undiagnosed new problem with uncertain prognosis? @ -No Drug Therapy requiring intensive monitoring for toxicity (Heparin, Nitro, Insulin, Cardizem)? @ -No Were any procedures done? @ -No Diagnosis/symptom? @ -Chest pain, dyspnea Acute, or Chronic, or Acute on Chronic? @ -Acute on chronic Uncomplicated (without systemic symptoms) or Complicated (systemic symptoms)? @ -Complicated Side effects of treatment? @ -none Exacerbation, Progression, or Severe Exacerbation] @ -no Poses a threat to life or bodily function? @ -Potentially - Lab Data Result diagrams: 11/02/22 08:24 11/02/22 08:24 Lab Results 11/02/22 11/02/22 11/02/22 Range/Units 08:24 08:24 08:24 WBC 5.5 (3.8-10.6) k/uL RBC 4.75 (3.80-5.40) m/uL Hgb 14.3 (11.4-16.0) gm/dL Hct 43.2 (34.0-46.0) % MCV 90.9 (80.0-100.0) fL MCH 30.0 (25.0-35.0) pg MCHC 33.0 (31.0-37.0) g/dL RDW 14.1 (11.5-15.5) % Plt Count 175 (150-450) k/uL MPV 8.4 Neutrophils % 62 % Lymphocytes % 25 % Monocytes % 6 % Eosinophils % 5 % Basophils % 1 % Neutrophils # 3.4 (1.3-7.7) k/uL Lymphocytes # 1.4 (1.0-4.8) k/uL Monocytes # 0.3 (0-1.0) k/uL Eosinophils # 0.3 (0-0.7) k/uL Basophils # 0.0 (0-0.2) k/uL PT 10.6 (9.0-12.0) sec INR 1.0 (<1.2) APTT 24.1 (22.0-30.0) sec D-Dimer (<0.60) mg/L FEU Sodium 137 (137-145) mmol/L Potassium 4.1 (3.5-5.1) mmol/L Chloride 112 H (98-107) mmol/L Carbon Dioxide 20 L (22-30) mmol/L Anion Gap 5 mmol/L BUN 17 (7-17) mg/dL Creatinine 0.72 (0.52-1.04) mg/dL Est GFR (CKD-EPI)AfAm >90 (>60 ml/min/1.73 sqM) Est GFR (CKD-EPI)NonAf 80 (>60 ml/min/1.73 sqM) Glucose 102 H (74-99) mg/dL Plasma Lactic Acid Robert (0.7-2.0) mmol/L Calcium 8.8 (8.4-10.2) mg/dL Magnesium 2.0 (1.6-2.3) mg/dL Total Bilirubin 0.7 (0.2-1.3) mg/dL AST 27 (14-36) U/L ALT 17 (4-34) U/L Alkaline Phosphatase 93 (38-126) U/L Troponin I (0.000-0.034) ng/mL NT-Pro-B Natriuret Pep 285 pg/mL Total Protein 5.9 L (6.3-8.2) g/dL Albumin 3.5 (3.5-5.0) g/dL 11/02/22 11/02/22 11/02/22 Range/Units 08:24 08:24 08:24 WBC (3.8-10.6) k/uL RBC (3.80-5.40) m/uL Hgb (11.4-16.0) gm/dL Hct (34.0-46.0) % MCV (80.0-100.0) fL MCH (25.0-35.0) pg MCHC (31.0-37.0) g/dL RDW (11.5-15.5) % Plt Count (150-450) k/uL MPV Neutrophils % % Lymphocytes % % Monocytes % % Eosinophils % % Basophils % % Neutrophils # (1.3-7.7) k/uL Lymphocytes # (1.0-4.8) k/uL Monocytes # (0-1.0) k/uL Eosinophils # (0-0.7) k/uL Basophils # (0-0.2) k/uL PT (9.0-12.0) sec INR (<1.2) APTT (22.0-30.0) sec D-Dimer 2.75 H (<0.60) mg/L FEU Sodium (137-145) mmol/L Potassium (3.5-5.1) mmol/L Chloride (98-107) mmol/L Carbon Dioxide (22-30) mmol/L Anion Gap mmol/L BUN (7-17) mg/dL Creatinine (0.52-1.04) mg/dL Est GFR (CKD-EPI)AfAm (>60 ml/min/1.73 sqM) Est GFR (CKD-EPI)NonAf (>60 ml/min/1.73 sqM) Glucose (74-99) mg/dL Plasma Lactic Acid Robert 1.0 (0.7-2.0) mmol/L Calcium (8.4-10.2) mg/dL Magnesium (1.6-2.3) mg/dL Total Bilirubin (0.2-1.3) mg/dL AST (14-36) U/L ALT (4-34) U/L Alkaline Phosphatase (38-126) U/L Troponin I <0.012 (0.000-0.034) ng/mL NT-Pro-B Natriuret Pep pg/mL Total Protein (6.3-8.2) g/dL Albumin (3.5-5.0) g/dL - EKG Data -: EKG Interpreted by Me EKG Comments: 12-lead Electrocardiogram Interpretation Note EKG was reviewed and interpreted by myself. 12-lead ECG performed at 0802 is interpreted by me as revealing normal sinus rhythm at a rate of 70 beats per minute. [place] is normal. IN interval is 162 ms, QRS duration is 88 ms, QTc is [address] segment depression in leads V6 and somewhat and V4/V5 with no obvious reciprocal changes... R wave progression across the precordium was satisfactory. . 12-lead Electrocardiogram Interpretation Note EKG was reviewed and interpreted by myself. 12-lead ECG performed at 0958 is interpreted by me as revealing normal sinus rhythm at a rate of 64 beats per minute. [place] is normal. IN interval is 164 ms, QRS duration is 86 ms, QTc is 450 ms.. There were no ST or T wave abnormalities to suggest myocardial ischemia or injury. R wave progression across the precordium was satisfactory. By my interpretation this EKG is non-diagnostic for acute ischemia. Disposition Clinical Impression: Chest pain, Exertional dyspnea Disposition: ADMITTED IP TO THIS HOSP Condition: Stable Time of Disposition: 10:28
[2022-11-02 08:44] LABS: Basophils % (A) 1 %; Eosinophils # (A) 0.3 k/uL (0-0.7); Eosinophils % (A) 5 %; HCT 43.2 % (34.0-46.0); HGB 14.3 gm/dL (11.4-16.0); Lymphocytes # (A) 1.4 k/uL (1.0-4.8); Lymphocytes % (A) 25 %; MCV 90.9 fL (80.0-100.0); Mean Platelet Volume 8.4; Monocytes # (A) 0.3 k/uL (0-1.0); Monocytes % (A) 6 %; Neutrophils # (A) 3.4 k/uL (1.3-7.7); Neutrophils % (A) 62 %; Platelet Count 175 k/uL (150-450); RBC 4.75 m/uL (3.80-5.40); RDW 14.1 % (11.5-15.5); WBC 5.5 k/uL (3.8-10.6)
[2022-11-02 08:53] LABS: Partial Thromboplastin Time 24.1 sec (22.0-30.0); Prothrombin Time 10.6 sec (9.0-12.0)
[2022-11-02 08:58] LABS: ALT 17 U/L (4-34); AST 27 U/L (14-36); African American GFR (CKD) >90 (>60 ml/min/1.73 sqM); Albumin 3.5 g/dL (3.5-5.0); Alkaline Phosphatase 93 U/L (38-126); Blood Urea Nitrogen 17 mg/dL (7-17); Calcium 8.8 mg/dL (8.4-10.2); Carbon Dioxide 20 mmol/L (22-30); Glucose 102 mg/dL (74-99); Non-African American GFR(CKD) 80 (>60 ml/min/1.73 sqM); Total Bilirubin 0.7 mg/dL (0.2-1.3); Total Protein 5.9 g/dL (6.3-8.2)
--- NOTE | 2022-11-02 09:04 | XR ---
EXAMINATION TYPE: XR chest 2V DATE OF EXAM: 11/02/2022 COMPARISON: 02/29/2012 INDICATION: Short of breath TECHNIQUE: Frontal and lateral views of the chest are obtained. FINDINGS: The heart size is normal. The pulmonary vasculature is normal. The lungs are clear. IMPRESSION: 1. No acute pulmonary process.
[2022-11-02 09:06] LABS: NT-Pro-B-Type Natriuretic Pept 285 pg/mL
[2022-11-02 09:22] LABS: Anion Gap 5 mmol/L; Chloride 112 mmol/L (98-107); Potassium 4.1 mmol/L (3.5-5.1); Sodium 137 mmol/L (137-145)
[2022-11-02] MEDS ORDERED: ALPRAZolam 0.5 MG TAB PO PRN (10:24)
[2022-11-02] MEDS ORDERED: ASPIRIN 325 MG TAB PO STA (10:24)
[2022-11-02] MEDS ORDERED: NITROGLYCERIN SL TABS 0.4 MG TAB SUBLINGUAL PRN (10:24)
[2022-11-02] MEDS ORDERED: ATORVASTATIN 80 MG TAB PO STA (10:24)
[2022-11-02] MEDS ORDERED: ALPRAZolam 0.25 MG TAB PO PRN (10:24)
[2022-11-02] MEDS ORDERED: NALOXONE 0.4 MG/ML 1 ML VIAL IV PRN (10:28)
[2022-11-02 11:01] LABS: Glucose,Whole Blood 86 mg/dL (70-110)
[2022-11-02] MEDS: SODIUM CHLORIDE 0.9% 1,000 ML IV SCH (11:02)
[2022-11-02] MEDS ORDERED: LIDOCAINE 1% INJ 10MG/ML (20 ML MDV) ONE (11:43)
[2022-11-02] MEDS ORDERED: VERAPAMIL 2.5 MG/ML 2 ML AMP ONE ×2 (11:43→12:30)
[2022-11-02] MEDS ORDERED: IV FLUID CONTINUATION 850 ML IV ONE (11:50)
[2022-11-02] MEDS ORDERED: fentaNYL (PF) 50 MCG/ML 2 ML AMP ONE (12:01)
[2022-11-02] MEDS ORDERED: HEPARIN SODIUM 1,000 UN/ML (10ML VL) ONE (12:01)
[2022-11-02] MEDS: MIDAZOLAM 2 MG/2 ML VIAL IVP ONE ×2 (12:11→12:20)
[2022-11-02] MEDS: fentaNYL (PF) 50 MCG/ML 2 ML AMP IVP ONE ×2 (12:11→12:20)
[2022-11-02] MEDS ORDERED: LIDOCAINE 1% INJ 10MG/ML (20 ML MDV) SQ ONE (12:12)
[2022-11-02] MEDS: VERAPAMIL SYRINGE (5 MG/10 ML) INTRAARTER ONE ×2 (12:13→12:16)
[2022-11-02] MEDS ORDERED: HEPARIN SODIUM 1,000 UN/ML (10ML VL) IV ONE ×2 (12:23→17:01)
[2022-11-02] MEDS ORDERED: VERAPAMIL SYRINGE (5 MG/10 ML) INTRAARTER ONE (12:31)
[2022-11-02] MEDS ORDERED: IOPAMIDOL-370 100ML BTL INJ ONE (12:34)
--- NOTE | 2022-11-02 14:17 | P.CARDCATH ---
Description of Procedure: PROCEDURES PERFORMED: Left heart catheterization, bilateral coronary angiography, ultrasound guided arterial access INDICATION: Chest pain and shortness breath with exertion concerning for unstable angina CONSENT:I have discussed the risks, benefits and alternative therapies for the above-mentioned procedure and for both sedation/analgesia as well as necessary blood product administration, if indicated, as they pertain to this patient. The patient has indicated understanding and acceptance of the risks and procedures discussed. PROCEDURE: After the risks, benefits and alternatives of the above mentioned procedure explained in detail with the patient, informed consent was obtained. Patient was taken to the catheterization lab and prepped and draped in usual fashion. Ultrasound guidance was used to assess for arterial access. 1% lidocaine was used to anesthetize the right radial artery. A 6-[place] sheath was placed in the right radial artery using modified Seldinger technique and ultrasound guidance. There was a significant right radial/ brachial loop however this was able to be straightened and therefore catheterization was able to be performed. Left coronary angiography was performed with a 5-[place] JL 3.5 catheter and right coronary angiography was performed with a 5-[place] JR5 catheter in various views. A 5-[place] FR5 catheter was inserted into the left ventricle and pressure measurements were obtained. The right radial sheath was removed and a TR band was placed with hemostasis achieved. The patient tolerated the procedure well. Patient was transported back to the post catheterization holding area in stable condition. Conscious Sedation: Patient was monitored under the direct supervision of myself for conscious sedation using Versed and fentanyl for a total duration of 21 minutes HEMODYNAMICS: Aorta: 142/76 LV: 141/5, LVEDP 23 SELECTIVE CORONARY ARTERIOGRAPHY: LEFT MAIN: The left main is a large caliber vessel which bifurcates into the LAD and circumflex. There is no significant stenosis. LEFT ANTERIOR DESCENDING CORONARY ARTERY: LAD is a large caliber vessel which wraps around to the apex. There is no significant stenosis however is somewhat tortuous. LEFT CIRCUMFLEX CORONARY ARTERY: Left circumflex is a moderate caliber vessel without significant stenosis. RIGHT CORONARY ARTERY: The right coronary artery is a large caliber vessel which gives off a PDA and PLV branch and is the dominant vessel. There is no significant stenosis. FINAL IMPRESSION: 1. Normal coronary arteries as described above. 2. Elevated left sided filling pressures PLAN: 1. Aggressive risk factor modification per most recent ACC/AHA guidelines. 2. Consider increasing diuretics
[2022-11-02] MEDS ORDERED: ACETAMINOPHEN TAB 325 MG TAB PO PRN (15:28)
--- NOTE | 2022-11-02 15:29 | P.HPIM ---
History of Present Illness H&P Date: 11/02/22 Chief Complaint: Chest pain shortness of breath * 82-year-old lady with past medical history significant for hypothyroidism presented to the emergency department with complaints of shortness of breath. Patient complained of worsening dyspnea and chest discomfort. Patient was seen by her erisa attorney will instructed her to come to ER. Patient denies previous history of coronary artery disease. Patient denies orthopnea or paroxysmal nocturnal dyspnea, nausea vomiting diaphoresis * Workup initiated in ER included elevated d-dimer 2.75. The serum chemistry were obtained which were normal sodium, normal creatinine. Liver profile within normal limits N-terminal BNP 285 CBC essentially normal * Patient had a chest x-ray done which was negative for acute process * CT chest was obtained results pending at the time of dictation * Patient was taken from ER to quality assurance/r&d lab technician and was seen after cardiac catheterization which showed normal coronary arteries REVIEW OF SYSTEMS: Pertinence of breath, chest pain CONSTITUTIONAL: No fever, no malaise, no fatigue. HEENT: No recent visual problems or hearing problems. Denied any sore throat. CARDIOVASCULAR: No chest pain, orthopnea, PND, no palpitations, no syncope. PULMONARY: No shortness of breath, no cough, no hemoptysis. GASTROINTESTINAL: No diarrhea, no nausea, no vomiting, no abdominal pain. NEUROLOGICAL: No headaches, no weakness, no numbness. HEMATOLOGICAL: Denies any bleeding or petechiae. GENITOURINARY: Denies any burning micturition, frequency, or urgency. MUSCULOSKELETAL/RHEUMATOLOGICAL: Denies any joint pain, swelling, or any muscle pain. ENDOCRINE: Denies any polyuria or polydipsia. The rest of the 14-point review of systems is negative. PHYSICAL EXAMINATION: GENERAL: The patient is alert and oriented x3, not in any acute distress. Well developed, well nourished. HEENT: Pupils are round and equally reacting to light. EOMI. No scleral icterus. No conjunctival pallor. Normocephalic, atraumatic. No pharyngeal erythema. No thyromegaly. CARDIOVASCULAR: S1 and S2 present. No murmurs, rubs, or gallops. PULMONARY: Chest is clear to auscultation, no wheezing or crackles. ABDOMEN: Soft, nontender, nondistended, normoactive bowel sounds. No palpable organomegaly. MUSCULOSKELETAL: No joint swelling or deformity. EXTREMITIES: No cyanosis, clubbing, or pedal edema. NEUROLOGICAL: Gross neurological examination did not reveal any focal deficits. SKIN: No rashes. Past Medical History Past Medical History: Osteoarthritis (OA), Thyroid Disorder History of Any Multi-Drug Resistant Organisms: None Reported Past Surgical History: Cholecystectomy, Joint Replacement, Tonsillectomy Additional Past Surgical History / Comment(s): STACEY. KNEE REPL., THYROIDECTOMY, STACEY FOOT BUNION SURGERY Past Anesthesia/Blood Transfusion Reactions: Postoperative Nausea & Vomiting (PONV) Additional Past Anesthesia/Blood Transfusion Reaction / Comment(s): SISTER PONV Past Psychological History: No Psychological Hx Reported Smoking Status: Never smoker Past Alcohol Use History: Rare Past Drug Use History: None Reported - Past Family History Sister(s) Family Medical History: Cancer Additional Family Medical History / Comment(s): UTERINE CA AND LYMPHOMA Medications and Allergies Home Medications Medication Instructions Recorded Confirmed Type Levothyroxine Sodium [Synthroid] 100 mcg PO DAILY 09/04/14 11/02/22 History Multivitamins, Thera [Multivitamin 1 tab PO DAILY 09/04/14 11/02/22 History (formulary)] Aspirin [Adult Low Dose Aspirin EC] 81 mg PO DAILY 10/27/22 11/02/22 History Metoprolol Succinate (ER) [Toprol 12.5 mg PO DAILY 10/27/22 11/02/22 History Xl] Ibuprofen [Motrin Ib] 200 mg PO Q8H PRN 11/02/22 11/02/22 History Annie Nail Gel 1 applic TOPICAL DAILY 11/02/22 11/02/22 History Nitroglycerin Sl Tabs [Nitrostat] 0.4 mg SUBLINGUAL Q5M PRN 11/02/22 11/02/22 History diphenhydrAMINE HCL [Benadryl] 25 mg PO DAILY PRN 11/02/22 11/02/22 History Allergies Allergy/AdvReac Type Severity Reaction Status Date / Time codeine Allergy Unknown Abdominal Verified 11/02/22 10:44 Pain sulfamethoxazole Allergy Unknown Unknown Verified 11/02/22 10:44 [From Bactrim] trimethoprim [From Bactrim] Allergy Unknown Unknown Verified 11/02/22 10:44 adhesive tape Allergy Rash/Hives Verified 11/02/22 10:44 hydrocodone bitartrate AdvReac Severe Severe Verified 11/02/22 10:44 [From [place]] Constipation Physical Exam Vitals: Vital Signs Temp Pulse Pulse Resp BP BP Pulse Ox 11/02/22 15:09 59 L 16 99 11/02/22 13:45 55 L 16 178/73 99 11/02/22 13:27 54 L 16 139/75 95 11/02/22 13:12 58 L 16 154/71 93 L 11/02/22 12:57 66 16 136/68 93 L 11/02/22 11:04 66 20 162/92 94 L 11/02/22 10:11 60 20 146/71 97 11/02/22 08:32 61 18 149/86 95 11/02/22 07:51 98.1 F 69 18 167/83 91 L Intake and Output 11/02/22 11/02/22 11/02/22 06:59 14:59 22:59 Intake Total 150 Balance 150 Intake: IV 150 Other: Weight 102.058 kg Results CBC & Chem 7: 11/02/22 08:24 11/02/22 08:24 Labs: Abnormal Lab Results - Last 24 Hours (Table) 11/02/22 11/02/22 Range/Units 08:24 08:24 D-Dimer 2.75 H (<0.60) mg/L FEU Chloride 112 H (98-107) mmol/L Carbon Dioxide 20 L (22-30) mmol/L Glucose 102 H (74-99) mg/dL Total Protein 5.9 L (6.3-8.2) g/dL Assessment and Plan Assessment: Assessment and plan * Exertional shortness of breath rule out acute coronary syndrome, coronary artery disease, pulmonary embolism * History of hypertension * Hypothyroid * Obesity * Consultation obtained from cardiology * She is status post cardiac catheterization normal coronary arteries * In regards to elevated d-dimer, CT chest ordered to rule out pulmonary embo lism, echocardiogram ordered * Started on Lasix by cardiology * In regard to hypothyroidism continue Synthroid * CODE STATUS is full code * SCDs for DVT prophylaxis
--- NOTE | 2022-11-02 15:31 | CT ---
EXAMINATION TYPE: CT chest angio for PE DATE OF EXAM: 11/02/2022 COMPARISON: None HISTORY: 82-year-old female shortness of breath, assess for PE TECHNIQUE: Contiguous axial scanning of the chest performed with IV Contrast, patient injected with 1 00 mL of Isovue 370. Coronal/sagittal MIP reconstructions performed. CT DLP: 456.3 mGycm Automated exposure control for dose reduction was used. FINDINGS: Heart is borderline in size without pericardial effusion. No flattening of the interventricular septu m or reflux of contrast into the hepatic veins. Ectatic ascending aorta at 3.9 cm. Bovine configuration to the aortic arch. Numerous nonenlarged AP window lymph nodes measuring up to 5 mm. Lower right paratracheal node measur ing 9 mm. Subcarinal node measuring 1.2 cm. Right hilar node measuring up to 1.7 cm. Large caliber to the main right and left pulmonary arteries up to 3.1 cm suggesting underlying pulmon lisa arterial hypertension. The exam is positive for bilateral pulmonary emboli. Thrombus extends thro ughout lobar and segmental branches of the right upper and right lower lobes. Additional distal lobar , segmental, and subsegmental branch emboli to the left lower lobe. Mild diffuse septal lines. No pleural effusion. Some patchy density left lower lobe, probably atelect asis. There is a moderate to large hiatal hernia involving approximately half of the stomach in the lower c hest. Visualized upper abdomen shows hazy central mesentery. Finding was present back in 2019 as well. Susp ect excreted contrast from the kidneys. Clinically correlate. A couple peripherally located splenules left upper quadrant measuring up to 1.2 cm, unchanged from 2019. DISH mid and lower thoracic spine. IMPRESSION: 1. EXAM POSITIVE FOR BILATERAL PULMONARY EMBOLI. MODERATE BURDEN ON THE RIGHT INVOLVING RUL AND RLL L OBAR AND SEGMENTAL BRANCHES. MILD BURDEN ON THE LEFT THROUGHOUT BRANCHES OF THE LLL. No CT evidence for right heart strain. 2. Borderline to mild cardiomegaly with pulmonary arterial hypertension. Some septal lines may reflec t mild pulmonary vascular congestion. 3. Borderline to mildly enlarged mediastinal and right hilar lymph nodes measuring up to 1.7 cm may b e reactive/post inflammatory. Follow-up in 3 months to reassess. Query any known neoplastic history e specially given the wili mesentery and lymphadenopathy on the patient's 01/26/2019 exam. 4. Moderate to large hiatal hernia redemonstrated. Critical findings called to Nurse Nicole in Extended Stay at 3:25pm.
[2022-11-02] MEDS ORDERED: SODIUM CHLORIDE 0.9% 1,000 ML IV ONE (16:30)
[2022-11-02] MEDS ORDERED: HEPARIN SODIUM 1,000 UN/ML (10ML VL) IV PRN (17:01)
[2022-11-02] MEDS ORDERED: hydrALAZINE HCL 20 MG/ML 1 ML VIAL IVP PRN (17:02)
[2022-11-02 17:34] LABS: Basophils % (A) 0 %; Eosinophils # (A) 0.2 k/uL (0-0.7); Eosinophils % (A) 3 %; HCT 40.3 % (34.0-46.0); HGB 13.5 gm/dL (11.4-16.0); Lymphocytes # (A) 1.5 k/uL (1.0-4.8); Lymphocytes % (A) 25 %; MCH 30.8 pg (25.0-35.0); MCHC 33.4 g/dL (31.0-37.0); MCV 92.3 fL (80.0-100.0); Monocytes # (A) 0.4 k/uL (0-1.0); Monocytes % (A) 7 %; Neutrophils % (A) 65 %; Platelet Count 161 k/uL (150-450); RBC 4.37 m/uL (3.80-5.40); RDW 14.1 % (11.5-15.5); WBC 6.2 k/uL (3.8-10.6)
[2022-11-02 17:44] LABS: Partial Thromboplastin Time 24.2 sec (22.0-30.0); Prothrombin Time 10.7 sec (9.0-12.0)
[2022-11-02] MEDS: HEPARIN SOD,PORK IN 0.45% NACL 25,000 UNIT in 0.45% NACL 1 250ML.BAG IV SCH (17:50)
--- NOTE | 2022-11-02 21:40 | US ---
EXAMINATION TYPE: US venous doppler duplex LE DATE OF EXAM: 11/02/2022 8:18 PM COMPARISON: NONE CLINICAL INDICATION: Female, 82 years old with history of pulmonary embolism , rule out dvt; PE SIDE PERFORMED: Bilateral TECHNIQUE: The lower extremity deep venous system is examined utilizing real time linear array sonog na with graded compression, doppler sonography and color-flow sonography. VESSELS IMAGED: Common Femoral Vein Deep Femoral Vein Greater Saphenous Vein * Femoral Vein Popliteal Vein Small Saphenous Vein * Proximal Calf Veins (* superficial vessels) Right Leg: Negative for DVT Left Leg: Negative for DVT IMPRESSION: Grayscale, color doppler, spectral doppler imaging performed of the deep veins of the lo wer extremities. There is normal flow, compressibility, vascular waveforms.
[2022-11-03] MEDS: SODIUM CHLORIDE 0.9% 1,000 ML IV SCH ×4 (04:58→20:10)
[2022-11-03] MEDS: LEVOTHYROXINE 100 MCG TAB PO SCH (04:58)
[2022-11-03] MEDS ORDERED: HEPARIN SODIUM,PORCINE (1 ML) 2,500 UNIT in SODIUM CHLORIDE 0.9% 250 ML IRRIGATION PRN (07:00)
[2022-11-03] MEDS ORDERED: HEPARIN SODIUM,PORCINE 10,000 UNIT in SODIUM CHLORIDE 0.9% 1,000 ML IRRIGATION PRN (07:00)
[2022-11-03] MEDS: HEPARIN SOD,PORK IN 0.45% NACL 25,000 UNIT in 0.45% NACL 1 250ML.BAG IV SCH ×2 (08:18→12:48)
[2022-11-03] MEDS: FUROSEMIDE 20 MG TAB PO SCH (08:20)
[2022-11-03] MEDS ORDERED: ASPIRIN 81 MG PO SCH (09:00)
[2022-11-03 09:25] LABS: Basophils % (A) 1 %; Eosinophils # (A) 0.3 k/uL (0-0.7); Eosinophils % (A) 5 %; HCT 41.4 % (34.0-46.0); HGB 13.7 gm/dL (11.4-16.0); Lymphocytes # (A) 1.7 k/uL (1.0-4.8); Lymphocytes % (A) 23 %; MCH 30.5 pg (25.0-35.0); MCV 92.3 fL (80.0-100.0); Mean Platelet Volume 8.5; Monocytes # (A) 0.4 k/uL (0-1.0); Monocytes % (A) 5 %; Neutrophils # (A) 4.8 k/uL (1.3-7.7); Neutrophils % (A) 66 %; Platelet Count 157 k/uL (150-450); RBC 4.49 m/uL (3.80-5.40); RDW 14.2 % (11.5-15.5); WBC 7.2 k/uL (3.8-10.6)
[2022-11-03 09:55] LABS: African American GFR (CKD) >90 (>60 ml/min/1.73 sqM); Anion Gap 7 mmol/L; Blood Urea Nitrogen 13 mg/dL (7-17); Calcium 8.3 mg/dL (8.4-10.2); Carbon Dioxide 22 mmol/L (22-30); Chloride 112 mmol/L (98-107); Glucose 130 mg/dL (74-99); Non-African American GFR(CKD) 84 (>60 ml/min/1.73 sqM); Potassium 4.1 mmol/L (3.5-5.1); Sodium 141 mmol/L (137-145)
--- NOTE | 2022-11-03 11:52 | CA ---
Transthoracic Echo Report Name: Steffany Sy Age: 82 Gender: F : 1940 Exam Date: 11/02/2022 14:46 Exam Location: [facility] Ht (in): 65 Wt (lb): 225 Ordering Physician: Mark Jackson DO ([email or web address]) Attending/Referring Phys: Returned Telephone Equipment Appraiser Archana Barrios RDCS Procedure CPT: Indications: Chest Pain Cardiac Hx: Technical Quality: Good Contrast 1: Total Dose (mL): Contrast 2: Total Dose (mL): MEASUREMENTS (Male / Female) Normal Values 2D ECHO LV Diastolic Diameter PLAX 4.7 cm 4.2 - 5.9 / 3.9 - 5.3 cm LV Systolic Diameter PLAX 2.9 cm IVS Diastolic Thickness 1.2 cm 0.6 - 1.0 / 0.6 - 0.9 cm LVPW Diastolic Thickness 1.2 cm 0.6 - 1.0 / 0.6 - 0.9 cm LV Relative Wall Thickness 0.5 RV Internal Dim ED PLAX 3.2 cm LA Systolic Diameter LX 3.7 cm 3.0 - 4.0 / 2.7 - 3.8 cm LA Volume 56.8 cm??? 18 - 58 / 22 - 52 cm??? M-MODE Aortic Root Diameter MM 3.3 cm MV E Point Septal Separation 0.7 cm AV Cusp Separation MM 2.1 cm DOPPLER AV Peak Velocity 131.1 cm/s AV Peak Gradient 6.9 mmHg MV Area PHT 3.1 cm??? Mitral E Point Velocity 74.3 cm/s Mitral A Point Velocity 89.5 cm/s Mitral E to A Ratio 0.8 MV Deceleration Time 248.5 ms MV E' Velocity 4.6 cm/s Mitral E to MV E' Ratio 16.2 TR Peak Velocity 260.1 cm/s TR Peak Gradient 27.1 mmHg Right Ventricular Systolic Press 31.7 mmHg FINDINGS Left Ventricle Left ventricular ejection fraction is estimated at 55-60 %. Left ventricular cavity size normal. Mildly increased septal wall thickness. Mildly increased posterior wall thickness. Right Ventricle Normal right ventricular size. Right ventricular systolic pressure within normal limits. Right Atrium Normal right atrial size. Left Atrium Mildly increased left atrial volume. Mitral Valve Structurally normal mitral valve. Trace to mild mitral regurgitation. Aortic Valve Trileaflet aortic valve. No aortic valve stenosis or regurgitation. Tricuspid Valve Structurally normal tricuspid valve. Mild tricuspid regurgitation. Pulmonic Valve Structurally normal pulmonic valve. Trace pulmonic regurgitation. Pericardium No pericardial effusion. Aorta Normal size aortic root and proximal ascending aorta. CONCLUSIONS LVH with preserved systolic function Thickened posterior pericardial stripe Previewed by: Dr. Jas Abel MD (Electronically Signed) Final Date: 03 November 2022 11:51
[2022-11-03] MEDS: amLODIPine 5 MG TAB PO SCH (11:53)
--- NOTE | 2022-11-03 13:20 | P.PN ---
Subjective Progress Note Date: 11/03/22 * 82-year-old lady with past medical history significant for hypothyroidism presented to the emergency department with complaints of shortness of breath. Patient complained of worsening dyspnea and chest discomfort. Patient was seen by her artillery officer will instructed her to come to ER. Patient denies p revious history of coronary artery disease. Patient denies orthopnea or paroxysmal nocturnal dyspnea, nausea vomiting diaphoresis * Workup initiated in ER included elevated d-dimer 2.75. The serum chemistry were obtained which were normal sodium, normal creatinine. Liver profile within normal limits N-terminal BNP 285 CBC essentially normal * Patient had a chest x-ray done which was negative for acute process * Patient was taken from ER to cardiovascular lab director and was seen after cardiac catheterization which showed normal coronary arteries * CT chest was obtained with pulmonary embolism * Patient was started on IV heparin drip * 11/03/2022 : Patient seen and evaluated bedside. Patient on IV heparin drip an d transitioned to oral Eliquis. Patient was notified about CT findings. We'll ambulate and potential discharge within the next 24 hours. Objective - Vital Signs Vital signs: Vital Signs Temp 97.9 F 11/03/22 08:00 Pulse 57 L 11/03/22 12:00 Resp 16 11/03/22 12:00 BP 163/79 11/03/22 12:00 Pulse Ox 97 11/03/22 12:00 FiO2 Intake & Output 11/02/22 11/03/22 11/03/22 18:59 06:59 18:59 Intake Total 1040 121.548 238.452 Balance 1040 121.548 238.452 Weight 102.058 kg Intake: IV 800 Intake, IV Titration 121.548 128.452 Amount Heparin Sod,Pork in 0.45% 121.548 128.452 NaCl 25,000 unit In 0.45 % NaCl 1 250ml.bag @ 18 UNITS/KG/HR 18.37 mls/hr IV .[id number] [facility] Rx#: [id number] Oral 240 110 Other: # Voids 1 1 3 # Bowel Movements 1 - Exam PHYSICAL EXAMINATION: GENERAL: The patient is alert and oriented x3, not in any acute distress. Well developed, well nourished. HEENT: Pupils are round and equally reacting to light. EOMI. No scleral icterus. No conjunctival pallor. Normocephalic, atraumatic. No pharyngeal erythema. No thyromegaly. CARDIOVASCULAR: S1 and S2 present. No murmurs, rubs, or gallops. PULMONARY: Chest is clear to auscultation, no wheezing or crackles. ABDOMEN: Soft, nontender, nondistended, normoactive bowel sounds. No palpable organomegaly. MUSCULOSKELETAL: No joint swelling or deformity. EXTREMITIES: No cyanosis, clubbing, or pedal edema. NEUROLOGICAL: Gross neurological examination did not reveal any focal deficits. SKIN: No rashes. - Labs CBC & Chem 7: 11/03/22 08:56 11/03/22 08:56 Labs: Abnormal Lab Results - Last 24 Hours (Table) 11/02/22 11/03/22 11/03/22 Range/Units 23:30 08:56 08:56 APTT 132.8 H* 104.1 H* (22.0-30.0) sec Chloride 112 H (98-107) mmol/L Glucose 130 H (74-99) mg/dL Calcium 8.3 L (8.4-10.2) mg/dL Assessment and Plan Assessment: Assessment and plan * Acute pulmonary embolism * History of hypertension * Hypothyroid * Obesity * Consultation obtained from cardiology >> She is status post cardiac catheterization for chronic shortness of breath normal coronary arteries. Patient started on IV heparin for pulmonary embolism transition to oral Eliquis * In regards to elevated d-dimer, CT chest showed pulmonary embolism,. Bi lateral pulmonary emboli noted. Moderate burden on the right.. Echocardiogram negative for right heart strain * Continue patient on Lasix and amlodipine. Beta tracie on hold secondary to bradycardia * In regard to hypothyroidism continue Synthroid * CODE STATUS is full code * SCDs for DVT prophylaxis
[2022-11-03] MEDS: METOPROLOL SUCCINATE (ER) 25 MG TAB.ER.24H PO SCH (16:04)
[2022-11-03] MEDS: APIXABAN 5 MG TAB PO SCH ×2 (16:04→20:09)
--- NOTE | 2022-11-03 17:50 | P.CRDCN ---
History of Present Illness Consult date: 11/03/22 History of present illness: HISTORY OF PRESENTING ILLNESS This is a pleasant 82-year-old with past medical history significant for hypothyroidism. She is known to Dr. Jackson. She was being evaluated in the clinic because of shortness of breath and unstable anginal symptoms she was instructed to come to the hospital for heart catheterization. Her cardiac catheterization did not show any obstructive coronary artery disease. On admission her labs showed elevated d-dimer, normal creatinine, BNP 285, normal hemoglobin. This was followed by CTA chest which showed evidence of bilateral pulmonary embolism with moderate burden. Her echo shows an EF of 55%, mildly increased septal wall thickness, no significant RV strain PRIOR CARDIAC TESTING Cardiac catheterization 11/03/2022 nonobstructive coronary artery disease Echo 11/03/2022 EF 55%, no significant valvular disease REVIEW OF SYSTEMS 14 point review of system is negative except what is mentioned above in HPI. PHYSICAL EXAMINATION Vital signs reviewed. Head: Normocephalic. Eyes: Sclerae nonicteric. Neck: Brisk carotid upstroke, no jugular venous distention. Lungs: Clear to auscultation. Heart: Regular rate and rhythm, S1-S2, no S3, no murmur or rub. Abdomen: Soft nontender, positive bowel sounds no organomegaly. Extremities: No edema, intact distal pulses. ASSESSMENT Acute bilateral pulmonary embolism, nonmassive, unprovoked. Essential hypertension Hypertension Obesity PLAN Discontinue IV heparin drip. Start Eliquis for pulmonary embolic disease Discontinue aspirin Follow up outpatient Patient room on his of his unprovoked. She she has not been immobile lately. I suspect patient has venous reflux disease or possibly a may-thurner disease considering her body habitus. This should be worked up as an outpatient. She should also get an outpatient hypocoagulable workup Patient is cleared to be discharged from cardiac standpoint Past Medical History Past Medical History: Osteoarthritis (OA), Thyroid Disorder History of Any Multi-Drug Resistant Organisms: None Reported Past Surgical History: Cholecystectomy, Joint Replacement, Tonsillectomy Additional Past Surgical History / Comment(s): STACEY. KNEE REPL., THYROIDECTOMY, STACEY FOOT BUNION SURGERY Past Anesthesia/Blood Transfusion Reactions: Postoperative Nausea & Vomiting (PONV) Additional Past Anesthesia/Blood Transfusion Reaction / Comment(s): SISTER PONV Past Psychological History: No Psychological Hx Reported Smoking Status: Never smoker Past Alcohol Use History: Rare Past Drug Use History: None Reported - Past Family History Sister(s) Family Medical History: Cancer Additional Family Medical History / Comment(s): UTERINE CA AND LYMPHOMA Medications and Allergies Home Medications Medication Instructions Recorded Confirmed Type Levothyroxine Sodium [Synthroid] 100 mcg PO DAILY 09/04/14 11/02/22 History Multivitamins, Thera [Multivitamin 1 tab PO DAILY 09/04/14 11/02/22 History (formulary)] Aspirin [Adult Low Dose Aspirin EC] 81 mg PO DAILY 10/27/22 11/02/22 History Metoprolol Succinate (ER) [Toprol 12.5 mg PO DAILY 10/27/22 11/02/22 History Xl] Ibuprofen [Motrin Ib] 200 mg PO Q8H PRN 11/02/22 11/02/22 History Annie Nail Gel 1 applic TOPICAL DAILY 11/02/22 11/02/22 History Nitroglycerin Sl Tabs [Nitrostat] 0.4 mg SUBLINGUAL Q5M PRN 11/02/22 11/02/22 History diphenhydrAMINE HCL [Benadryl] 25 mg PO DAILY PRN 11/02/22 11/02/22 History Allergies Allergy/AdvReac Type Severity Reaction Status Date / Time codeine Allergy Unknown Abdominal Verified 11/02/22 10:44 Pain sulfamethoxazole Allergy Unknown Unknown Verified 11/02/22 10:44 [From Bactrim] trimethoprim [From Bactrim] Allergy Unknown Unknown Verified 11/02/22 10:44 adhesive tape Allergy Rash/Hives Verified 11/02/22 10:44 hydrocodone bitartrate AdvReac Severe Severe Verified 11/02/22 10:44 [From [place]] Constipation Physical Exam Vitals: Vital Signs Temp Pulse Pulse Resp BP BP BP 11/03/22 16:00 62 16 140/66 11/03/22 14:00 57 L 64 16 11/03/22 12:00 57 L 16 163/79 11/03/22 08:00 97.9 F 77 64 16 146/65 11/03/22 04:00 60 18 155/68 11/03/22 02:00 64 18 11/03/22 00:00 97.5 F L 64 18 161/77 11/02/22 20:00 97.9 F 62 18 150/70 177/79 Pulse Ox 11/03/22 16:00 97 11/03/22 14:00 11/03/22 12:00 97 11/03/22 08:00 95 11/03/22 04:00 94 L 11/03/22 02:00 11/03/22 00:00 93 L 11/02/22 20:00 96 Intake and Output 11/03/22 11/03/22 11/03/22 06:59 14:59 22:59 Intake Total 121.548 238.452 Balance 121.548 238.452 Intake: Intake, IV Titration 121.548 128.452 Amount Heparin Sod,Pork in 0.45% 121.548 128.452 NaCl 25,000 unit In 0.45 % NaCl 1 250ml.bag @ 18 UNITS/KG/HR 18.37 mls/hr IV .[id number] [facility] Rx#: [id number] Oral 110 Other: # Voids 1 3 3 Results 11/03/22 08:56 11/03/22 08:56 Cardiac Enzymes 11/02/22 Range/Units 17:19 Troponin I 0.015 (0.000-0.034) ng/mL Coagulation 11/02/22 11/03/22 Range/Units 23:30 08:56 APTT 132.8 H* 104.1 H* (22.0-30.0) sec CBC 11/03/22 Range/Units 08:56 WBC 7.2 (3.8-10.6) k/uL RBC 4.49 (3.80-5.40) m/uL Hgb 13.7 (11.4-16.0) gm/dL Hct 41.4 (34.0-46.0) % Plt Count 157 (150-450) k/uL Comprehensive Metabolic Panel 11/03/22 Range/Units 08:56 Sodium 141 (137-145) mmol/L Potassium 4.1 (3.5-5.1) mmol/L Chloride 112 H (98-107) mmol/L Carbon Dioxide 22 (22-30) mmol/L BUN 13 (7-17) mg/dL Creatinine 0.66 (0.52-1.04) mg/dL Glucose 130 H (74-99) mg/dL Calcium 8.3 L (8.4-10.2) mg/dL Current Medications Generic Name Dose Route Start Last Admin Trade Name Freq PRN Reason Stop Dose Admin Acetaminophen 650 mg 11/02/22 15:28 Acetaminophen Tab 325 Mg Tab PO Q6HR PRN Mild Pain or Fever > 100.5 Alprazolam 0.25 mg 11/02/22 10:24 Alprazolam 0.25 Mg Tab PO Q6HR PRN Mild Anxiety Alprazolam 0.5 mg 11/02/22 10:24 Alprazolam 0.5 Mg Tab PO Q6HR PRN Moderate Anxiety Amlodipine Besylate 5 mg 11/03/22 11:30 11/03/22 11:53 Amlodipine 5 Mg Tab PO 5 mg DAILY [facility] Administration Apixaban 10 mg 11/03/22 14:00 11/03/22 16:04 Apixaban 5 Mg Tab PO 12/03/22 08:59 10 mg BID [facility] Administration Taper Furosemide 20 mg 11/03/22 09:00 11/03/22 08:20 Furosemide 20 Mg Tab PO 20 mg DAILY [facility] Administration Hydralazine HCl 10 mg 11/02/22 17:02 Hydralazine Hcl 20 Mg/Ml 1 Ml Vial IVP Q6HR PRN Blood Pressure - Systolic >160 Sodium Chloride 1,000 mls @ 100 mls/hr 11/02/22 10:30 11/03/22 17:04 Saline 0.9% IV Not Given .Q10H [facility] Levothyroxine Sodium 100 mcg 11/03/22 06:30 11/03/22 04:58 Levothyroxine 100 Mcg Tab PO 100 mcg 0630 [facility] Administration Metoprolol Succinate 12.5 mg 11/03/22 13:30 11/03/22 16:04 Metoprolol Succinate (Er) 25 Mg Tab.Er.24h PO 12.5 mg DAILY [facility] Administration Naloxone HCl 0.2 mg 11/02/22 10:28 Naloxone 0.4 Mg/Ml 1 Ml Vial IV Q2M PRN Opioid Reversal Nitroglycerin 0.4 mg 11/02/22 10:24 Nitroglycerin Sl Tabs 0.4 Mg Tab SUBLINGUAL Q5M PRN Chest Pain Intake and Output 11/03/22 11/03/22 11/03/22 06:59 14:59 22:59 Intake Total 121.548 238.452 Balance 121.548 238.452 Intake: Intake, IV Titration 121.548 128.452 Amount Heparin Sod,Pork in 0.45% 121.548 128.452 NaCl 25,000 unit In 0.45 % NaCl 1 250ml.bag @ 18 UNITS/KG/HR 18.37 mls/hr IV .[id number] [facility] Rx#: [id number] Oral 110 Other: # Voids 1 3 3 11/03/22 08:56 11/03/22 08:56
[2022-11-04 04:44] VITALS: RESP 16
[2022-11-04] MEDS: LEVOTHYROXINE 100 MCG TAB PO SCH (06:15)
[2022-11-04] MEDS: METOPROLOL SUCCINATE (ER) 25 MG TAB.ER.24H PO SCH (08:28)
[2022-11-04] MEDS: FUROSEMIDE 20 MG TAB PO SCH (08:29)
[2022-11-04] MEDS: amLODIPine 5 MG TAB PO SCH (08:29)
[2022-11-04] MEDS: APIXABAN 5 MG TAB PO SCH (08:29)
[2022-11-04 09:52] VITALS: BP 146/74; PULSE 64; TEMP 97.7
[2022-11-04 10:25] LABS: African American GFR (CKD) 83 (>60 ml/min/1.73 sqM); Anion Gap 7 mmol/L; Blood Urea Nitrogen 13 mg/dL (7-17); Calcium 8.6 mg/dL (8.4-10.2); Carbon Dioxide 25 mmol/L (22-30); Chloride 107 mmol/L (98-107); Glucose 185 mg/dL (74-99); Non-African American GFR(CKD) 72 (>60 ml/min/1.73 sqM); Potassium 3.9 mmol/L (3.5-5.1); Sodium 139 mmol/L (137-145)
--- NOTE | 2022-11-04 10:37 | P.PN ---
Subjective HISTORY OF PRESENT ILLNESS: This is a pleasant 82-year-old with past medical history significant for hypothyroidism. She is known to Dr. Jackson. She was being evaluated in the clinic because of shortness of breath and unstable anginal symptoms she was instructed to come to the hospital for heart catheterization. Her cardiac catheterization did not show any obstructive coronary artery disease. On admission her labs showed elevated d-dimer, normal creatinine, BNP 285, normal hemoglobin. This was followed by CTA chest which showed evidence of bilateral pulmonary embolism with moderate burden. Her echo shows an EF of 55%, mildly increased septal wall thickness, no significant RV strain PRIOR CARDIAC TESTING Cardiac catheterization 11/03/2022 nonobstructive coronary artery disease Echo 11/03/2022 EF 55%, no significant valvular disease 11/04/2022 Patient examined this morning at the bedside. Patient denies chest pain or pressure. She denies shortness of breath. She has been transitioned to oral anticoagulation. Patient's blood pressures have been elevated with a systolic between [id number]. She was started on amlodipine per primary medicine. PHYSICAL EXAM: VITAL SIGNS: Reviewed. GENERAL: Well-developed in no acute distress. NECK: Supple. No JVD or thyromegaly LUNGS: Respirations even and unlabored. Lungs essentially clear to auscultation bilaterally. HEART: Regular rate and rhythm. S1 and S2 heard. EXTREMITIES: Normal range of motion. No clubbing or cyanosis. Peripheral pulses intact. No lower extremity edema ASSESSMENT: Acute bilateral pulmonary embolism, non-massive, unprovoked Hypertension Obesity Nonobstructive coronary artery disease PLAN: Continue current cardiac medications Continue to monitor blood pressure Continue anticoagulation with Eliquis Recommend outpatient hematology workup for unprovoked PE Patient is stable from a cardiac standpoint Patient to follow-up post discharge with Dr. Jackson Nurse practitioner note has been reviewed by physician. Signing provider agrees with the documented findings, assessment, and plan of care. Objective - Vital Signs Vital signs: Vital Signs Temp 97.7 F 11/04/22 08:00 Pulse 64 11/04/22 08:00 Resp 16 11/04/22 08:00 BP 146/74 11/04/22 08:00 Pulse Ox 98 11/04/22 08:49 FiO2 Intake & Output 11/03/22 11/04/22 11/04/22 18:59 06:59 18:59 Intake Total 458.452 110 Balance 458.452 110 Intake: Intake, IV Titration 128.452 Amount Heparin Sod,Pork in 0.45% 128.452 NaCl 25,000 unit In 0.45 % NaCl 1 250ml.bag @ 18 UNITS/KG/HR 18.37 mls/hr IV .[id number] [facility] Rx#: [id number] Oral 330 110 Other: Voiding Method Toilet Toilet # Voids 3 1 - Labs CBC & Chem 7: 11/03/22 08:56 11/04/22 08:41 Labs: Abnormal Lab Results - Last 24 Hours (Table) 11/04/22 Range/Units 08:41 Glucose 185 H (74-99) mg/dL
[2022-11-04 10:45] LABS: HCT 44.9 % (34.0-46.0); HGB 14.5 gm/dL (11.4-16.0); MCH 30.3 pg (25.0-35.0); MCHC 32.4 g/dL (31.0-37.0); MCV 93.6 fL (80.0-100.0); Mean Platelet Volume 8.7; Platelet Count 184 k/uL (150-450); RDW 14.1 % (11.5-15.5); WBC 6.7 k/uL (3.8-10.6)
--- NOTE | 2022-11-04 11:45 | P.DS ---
Providers Date of admission: 11/02/22 10:28 Expected date of discharge: 11/04/22 Attending physician: Tom Lynn MD Consults: 11/02/22 10:28 Consult Physician Routine Consulting Provider: [facility] Consult Reason/Comments: chest pain, admit for heart cath with jackson Do you want consulting provider notified?: Yes Primary care physician: [facility] Course: 82-year-old lady with past medical history significant for hypothyroidism presented to the emergency department with complaints of shortness of breath. Patient complained of worsening dyspnea and chest discomfort. Patient was seen by her wood ski maker will instructed her to come to ER. Patient denies previous history of coronary artery disease. Patient denies orthopnea or paroxysmal nocturnal dyspnea, nausea vomiting diaphoresis * Workup initiated in ER included elevated d-dimer 2.75. The serum chemistry were obtained which were normal sodium, normal creatinine. Liver profile wi thin normal limits N-terminal BNP 285 CBC essentially normal * Patient had a chest x-ray done which was negative for acute process * Patient was taken from ER to excavation laborer and was seen after cardiac cath eterization which showed normal coronary arteries * CT chest was obtained with pulmonary embolism * Patient was started on IV heparin drip * 11/03/2022 : Patient seen and evaluated bedside. Patient on IV heparin drip and transitioned to oral Eliquis. Patient was notified about CT findings. We'll ambulate and potential discharge within the next 24 hours. * 11/04/2022: Patient seen and evaluated bedside, patient transition from IV heparin to Eliquis. Patient remains on hold room air. Blood pressure better. Patient discharged on amlodipine and Eliquis home medications list of them continued referral for outpatient hematology information provided PHYSICAL EXAMINATION: GENERAL: The patient is alert and oriented x3, not in any acute distress. Well developed, well nourished. HEENT: Pupils are round and equally reacting to light. EOMI. No scleral icterus. No conjunctival pallor. Normocephalic, atraumatic. No pharyngeal erythema. No thyromegaly. CARDIOVASCULAR: S1 and S2 present. No murmurs, rubs, or gallops. PULMONARY: Chest is clear to auscultation, no wheezing or crackles. ABDOMEN: Soft, nontender, nondistended, normoactive bowel sounds. No palpable organomegaly. MUSCULOSKELETAL: No joint swelling or deformity. EXTREMITIES: No cyanosis, clubbing, or pedal edema. NEUROLOGICAL: Gross neurological examination did not reveal any focal deficits. SKIN: No rashes. Assessment and plan * Acute pulmonary embolism * History of hypertension * Hypothyroid * Obesity * Consultation obtained from cardiology >> She is status post cardiac catheterization for chronic shortness of breath normal coronary arteries. Patient started on IV heparin for pulmonary embolism transition to oral Eliquis starter pack with refills given * In regards to elevated d-dimer, CT chest showed pulmonary embolism,. Bilateral pulmonary emboli noted. Moderate burden on the right.. Echocardiogram negative for right heart strain * Continue patient on amlodipine and metoprolol * In regard to hypothyroidism continue Synthroid * Patient follow up with hematology Plan - Discharge Summary Discharge Rx Participant: Yes New Discharge Prescriptions: New amLODIPine [Norvasc] 5 mg PO DAILY 30 Days #30 tab Apixaban [Eliquis Starter Pack (for VTE)] 5 - 10 mg PO DIRECTED 30 Days #1 each Continue Multivitamins, Thera [Multivitamin (formulary)] 1 tab PO DAILY Levothyroxine Sodium [Synthroid] 100 mcg PO DAILY Metoprolol Succinate (ER) [Toprol XL] 12.5 mg PO DAILY diphenhydrAMINE HCL [Benadryl] 25 mg PO DAILY PRN PRN Reason: Itching Nitroglycerin Sl Tabs [Nitrostat] 0.4 mg SUBLINGUAL Q5M PRN PRN Reason: Chest Pain Annie Nail Gel 1 applic TOPICAL DAILY Discontinued Ibuprofen [Motrin Ib] 200 mg PO Q8H PRN PRN Reason: Fever And/ Or Pain Aspirin [Adult Low Dose Aspirin EC] 81 mg PO DAILY Discharge Medication List Levothyroxine Sodium [Synthroid] 100 mcg PO DAILY 09/04/14 [History] Multivitamins, Thera [Multivitamin (formulary)] 1 tab PO DAILY 09/04/14 [History] Metoprolol Succinate (ER) [Toprol XL] 12.5 mg PO DAILY 10/27/22 [History] Annie Nail Gel 1 applic TOPICAL DAILY 11/02/22 [History] Nitroglycerin Sl Tabs [Nitrostat] 0.4 mg SUBLINGUAL Q5M PRN 11/02/22 [History] diphenhydrAMINE HCL [Benadryl] 25 mg PO DAILY PRN 11/02/22 [History] Apixaban [Eliquis Starter Pack (for VTE)] 5 - 10 mg PO DIRECTED 30 Days #1 each 11/04/22 [Rx] amLODIPine [Norvasc] 5 mg PO DAILY 30 Days #30 tab 11/04/22 [Rx] Follow up Appointment(s)/Referral(s): Mark Jackson DO [STAFF PHYSICIAN] - 11/09/22 2:45 pm (Follow up appointment on Wednesday, November 09, 2022 at 2:45 ) None,Stated [REFERRING] - 1-2 days Addy Joseph [STAFF PHYSICIAN] - 2 Weeks Patient Instructions/Handouts: *Surgery [facility] - After Heart Catheterization - Key Maker Instructions, Radiological Ionic Contrast Media (By injection), Moderate Sedation (DC), Fall Prevention (DC), After Radial Heart Catheterization (GEN) Activity/Diet/Wound Care/Special Instructions: No driving for two days Ok to shower tomorrow but no baths, pools, lakes, doing dishes by hand for five days. Signs of infection IE: fever, rash, drainage from puncture site, swelling go to ER/doctor for immediate evaluation. Avoid using right wrist/hand to bend, flex, lift greater than 5 lbs for five days. For Heavy Bleeding of puncture site apply firm direct pressure and return to ER. Do not attempt to drive self. low sodium/low fat diet medications as directed by Cardiologists Discharge Disposition: HOME SELF-CARE
== END 2022-11-04 17:25 | disposition home or self-care (01) | DRG 176 ==
LOC: EC 07:47 → 3SCARD 10:28
PROVIDERS: ADMIT Internal Medicine; ATTEND Internal Medicine
PROC: 4A023N7 Measurement of Cardiac Sampling and Pressure, Left Heart, Percutaneous Approach (ICD-10-PCS; principal; 2022-11-02 19:25)
PROC: B2111ZZ Fluoroscopy of Multiple Coronary Arteries using Low Osmolar Contrast (ICD-10-PCS; 2022-11-02 19:25)
DX: I26.99 Other pulmonary embolism without acute cor pulmonale (principal); I25.110 Atherosclerotic heart disease of native coronary artery with unstable angina pectoris; I10 Essential (primary) hypertension; E66.9 Obesity, unspecified; E89.0 Postprocedural hypothyroidism; R00.1 Bradycardia, unspecified; Z96.653 Presence of artificial knee joint, bilateral; Z68.37 Body mass index [BMI] 37.0-37.9, adult; Z79.82 Long term (current) use of aspirin; Z79.890 Hormone replacement therapy; Z91.048 Other nonmedicinal substance allergy status; Z88.5 Allergy status to narcotic agent; Z88.1 Allergy status to other antibiotic agents
CPT/HCPCS: 36415; 71046; 71275; 76937; 80048; 80053; 83605; 83735; 83880; 84484; 85025; 85027; 85379; 85610; 85730; 93005; 93306; 93458; 93970; 94760; 96360; 99285

== ENCOUNTER → 2023-02-08 | Outpatient (CLI) | payer MEDICARE ==
[2023-02-08 10:16] LABS: African American GFR (CKD) >90 (>60 ml/min/1.73 sqM); Blood Urea Nitrogen 23 mg/dL (7-17); Non-African American GFR(CKD) 83 (>60 ml/min/1.73 sqM)
--- NOTE | 2023-02-08 14:13 | CT ---
EXAMINATION TYPE: CT ChestAbdPelvis w con DATE OF EXAM: 02/08/2023 COMPARISON: Prior CT abdomen and pelvis January 26, 2019 HISTORY: Adenopathy. Hx of PE. Hypertension. CT DLP: 2219.2 mGycm. Automated Exposure Control for Dose Reduction was Utilized. CONTRAST: CT scan of the thorax, abdomen and pelvis is performed with IV Contrast, patient injected with 100 ml mL of Isovue 300. FINDINGS: LUNGS: Low lung volumes with central opacity favoring mild edema. No focal consolidation. No pleural effusion or pneumothorax is seen bilaterally. MEDIASTINUM: Stable prominent subcarinal and right hilar lymph nodes. No pericardial effusion is se en. Heart size stable and upper limits of normal . Small sized left thyroid lobe. Absent right thyroi d lobe. Prominent pulmonary arteries again seen raising concern for underlying pulmonary artery hyper tension. LIVER/GB: Cholecystectomy clips are redemonstrated. PANCREAS: Mild amount of fat replaced atrophy. SPLEEN: No significant abnormality is seen. ADRENALS: No significant abnormality is seen. KIDNEYS: Central simple thin-walled parapelvic cysts in both kidneys redemonstrated. BOWEL: Moderate to large size hiatal hernia. Contrast reaches level of the rectum no abnormal small o r large bowel dilatation is seen. GENITAL ORGANS: No gross abnormality seen. LYMPH NODES: Moderate ill-defined fluid and fat stranding in the abdominal mesentery with prominent b ut subcentimeter mesenteric lymph nodes redemonstrated. OSSEOUS STRUCTURES: Moderate axial joint space loss and spurring in both hips. Multilevel bridging os teophytes in the thoracic spine redemonstrated. OTHER: No significant additional abnormality is seen. IMPRESSION: Jeannie mesentery appearance remains present differential includes neoplasm such as lymphom a. No significant change from 2019 CT noted however. Correlate clinically.
== END | disposition home or self-care (01) ==
LOC: RADCTMAIN 09:11
PROVIDERS: ATTEND Internal Medicine Hematology & Oncology
DX: I10 Essential (primary) hypertension (principal); R59.0 Localized enlarged lymph nodes; Z86.711 Personal history of pulmonary embolism
CPT/HCPCS: 82565; 84520; 71260; 74177; 36415; Q9967

== ENCOUNTER → 2023-12-13 | Outpatient (CLI) | payer MEDICARE ==
--- NOTE | 2023-12-13 12:47 | MM ---
Reason for Exam: Screening (asymptomatic). Last screening mammogram was performed 12 month(s) ago. Patient History: Menarche at age 13. Patient has no children. Postmenopausal. Other cancer. Estrogen, from age 47 until age 64. Progesterone for 17 years from age 47 until age 64. Benign Cyst Aspiration on the right side. Benign Cyst Aspiration on the left side. Benign Excisional Biopsy on the left side. 09/17/2014, Benign Core Biopsy on the left side. 02/25/2010, Benign Core Biopsy on the right side. Maternal aunt had breast cancer, age 40. Risk Values: Kimberly 5 year model risk: 3.0%. NCI Lifetime model risk: 4.2%. Prior Study Comparison: 12/06/2020 Bilateral Screening Mammogram, [facility]. 12/08/2021 Bilateral MG 3D screening mammo w/cad, [facility]. 12/09/2022 Bilateral MG 3D screening mammo w/cad, [facility]. Tissue Density: The breasts are heterogeneously dense, which may obscure small masses. Findings: Analyzed By CAD. There is no suspicious group of microcalcifications or new suspicious mass in either breast. Overall Assessment: Benign, BI-RAD 2 Management: Screening Mammogram of both breasts in 1 year. . Patient should continue monthly self-breast exams. A clinical breast exam by your physician is recommended on an annual basis. This exam should not preclude additional follow-up of suspicious palpable abnormalities. Note on Kimberly scores and lifetime risk: 1. A Kimberly score greater than 3% is considered moderate risk. If this is the case, consider specialist referral to assess eligibility for a risk reducing agent. 2. If overall lifetime risk for the development of breast cancer is 20% or higher, the patient may qualify for future screening with alternating mammogram and breast MRI. [facility], , 12/13/2023 12:44 PM. Electronically signed and approved by: Hermann Calles M.D. Radiologis
== END | disposition home or self-care (01) ==
LOC: RADMAMWWP 08:40
PROVIDERS: ATTEND Family Medicine
DX: Z12.31 Encounter for screening mammogram for malignant neoplasm of breast
CPT/HCPCS: 77063; 77067